=== PATIENT | female | born 1945 | race Caucasian/White ===

== ENCOUNTER 2025-04-17 10:10 | Emergency (ER) | payer MEDICARE, OTHER ==
[~2025-04-17] VITALS: Ht 177.8 cm; Wt 98.1 kg
--- NOTE | 2025-04-17 10:22 | ELECTROCARDIOGRAPH REPORT ---
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 Rigoberto Joe Measurements Intervals Margie Rate: 124 P: 0 AK: 0 QRS: 48 QRSD: 132 T: 53 QT: 345 QTc: 496 Interpretive Statements Atrial fibrillation Left bundle branch block Electronically Signed On 04-27-2025 8:16:[address] Rigoberto Joe Please click the below link to view image of tracing.
[2025-04-17 10:29] LABS: MEAN PLATELET VOLUME 10.3 FL (7.4-10.4); RED CELL DISTRIBUTION WIDTH 15.2 % (11.5-14.5)
[2025-04-17 10:52] LABS: CREATININE 0.66 MG/DL (0.40-0.90); PRO BRAIN NATRIURETIC PEPTIDE 1854 PG/ML (0-450); TOTAL CARBON DIOXIDE 29.3 MMOL/L (24-32); eCRCL 77 ML/MIN; eGFR 87 ML/MIN
--- NOTE | 2025-04-17 11:07 | RADIOLOGY REPORT ---
EXAM: DI CHEST,SINGLE VIEW HISTORY: CP COMPARISON: None TECHNIQUE: Portable upright AP view of the chest was performed. FINDINGS: No pneumothorax, consolidative infiltrates, or pulmonary edema. The heart is borderline enlarged. There is a left chest loop recorder. 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 IMPRESSION: No acute intrathoracic process.
--- NOTE | 2025-04-17 12:49 | Physician Documentation ---
History of Present Illness ~ Chief Complaint: Irregular Heartbeat Stated Complaint: IRREG HEART RATE Time Seen by MD: 10:48 Source: patient Mode of Arrival: Ambulatory Exam Limitations: no limitations HPI Chief Complaint: Palpitations Caveat: None Independent Historians: History of Present Illness: Patient is a 79-year-old woman with a history of labile hypertension who presents with palpitations that began last evening around 9:00 p.m.. It kept her from sleeping. No chest pain. Maybe some mild shortness a breath. Patient denies any cough or fever. Patient has had nausea since last night. She has had some associated dizziness/lightheadedness. No abdominal pain. Review of systems: All systems were reviewed and are negative except for what is indicated in the history of present illness. Past Medical History: HTN Past Surgical History: Noncontributory Social History: , no tobacco use, no alcohol use, no drug use Medications: Reviewed as documented Nursing Notes Allergies: Reviewed as documented in Nursing Notes Medication Reconciliation Allergies: Coded Allergies: verapamil (Verified Allergy, Unknown, seizure, 04/17/25) Review of Systems All Other Systems at this time: Reviewed and Negative ROS Patient denies any other acute symptoms other than above. All other systems are negative Physical Exam Vital Signs: Temperature: 96.9, Heart Rate: 132, Respiratory Rate: 18, BP: 188/100, Pulse Oximetry: 97, Weight: 98.100 Oxygen Flow Rate: 0 Pulse Oximetry Reflects: adequate oxygenation Physical Exam General Appearance: No distress HEENT: Normal OP, moist oral mucosa, PERRL, EOMI Neck: supple, normal ROM, trachea midline Pulmonary: No respiratory distress, CTA, BS equal Cardiac: Tachycardic, irregularly irregular, no murmur, rub or gallop, GI: nondistended, soft, nontender, normal bowel sounds, no guarding, no rebound Extremities: normal ROM, no swelling, non-tender Skin: intact, dry, warm, no rashes Neuro: AAOx3, speech is clear, no focal motor weakness Psych: normal affect, good eye contact, no apparent hallucination, normal speech Procedures Cardioversion Cardioversion : Medications: Diprivan (70 MG) Joules: 120 Resulting Rhythm: NSR Tolerated Procedure Well?: yes, no complications Procedure Note PATIENT TOLERATED THE PROCEDURE WELL. BLOOD PRESSURE IMPROVED. NO HYPOXIA OCCURRED. PATIENT IS NOW AWAKE AND MENTAL STATUS BACK TO BASELINE. PATIENT NEUROLOGICALLY INTACT. Progress Results/Orders Results/Orders Orders - PATTI MOTA MD Chest,Single View (04/17/25 10:15) Monitor (04/17/25 10:15) Saline Lock (04/17/25 10:15) Oxygen (04/17/25 10:15) Completed Orders - PATTI MOTA MD Chest,Single View (04/17/25 10:15) Cbc/Diff (04/17/25 10:15) BMP (04/17/25 10:15) PBNP (04/17/25 10:15) Electrocardiogram (04/17/25 10:15) Hs Troponin I W Calculations (04/17/25 10:15) Hs Troponin I W Calculations (04/17/25 12:15) Propofol Inj (Diprivan Inj) (04/17/25 13:00) Vital Signs 04/17/25 04/17/25 04/17/25 04/17/25 10:23 11:49 13:28 13:34 Temp 96.9 96.9 Pulse 120 132 94 100 Resp 18 18 11 12 B/P (MAP) 190/111 188/100 (129) 197/97 (130) 197/97 Pulse Ox 96 97 99 100 O2 Delivery Nasal Cannula O2 Flow Rate 0 0 2.0 04/17/25 04/17/25 04/17/25 04/17/25 13:35 13:37 13:38 13:45 Pulse 105 105 105 66 Resp 15 15 15 14 B/P (MAP) 184/112 184/112 184/112 Pulse Ox 99 99 99 98 O2 Delivery Nasal Cannula Nasal Cannula Nasal Cannula Nasal Cannula* O2 Flow Rate 2.0 2.0 2.0 2 FiO2 28 04/17/25 13:45 Pulse 66 Resp 24 Pulse Ox 98 O2 Delivery Nasal Cannula O2 Flow Rate 2.0 Laboratory Tests Test 04/17/25 10:20 04/17/25 12:05 White Blood Count 5.7 Red Blood Count 4.65 Hemoglobin 13.0 Hematocrit 39.3 Mean Corpuscular Volume 84.5 Mean Corpuscular Hemoglobin 28.0 Mean Corpuscular Hemoglobin Concent 33.1 Red Cell Distribution Width 15.2 H Platelet Count 145 Mean Platelet Volume 10.3 Neutrophils (%) (Auto) 46.9 Lymphocytes (%) (Auto) 37.0 Monocytes (%) (Auto) 8.0 Eosinophils (%) (Auto) 6.8 H Basophils (%) (Auto) 1.3 H Neutrophils # (Auto) 2.7 Lymphocytes # (Auto) 2.1 Monocytes # (Auto) 0.5 Eosinophils # (Auto) 0.4 Basophils # (Auto) 0.1 CBC Comment Sodium Level 141 Potassium Level 4.0 Chloride Level 105 Carbon Dioxide Level 29.3 Anion Gap 7 L Blood Urea Nitrogen 9 Creatinine 0.66 Estimated GFR/1.73 m2 87 BUN/Creatinine Ratio 13.6 Glucose Level 104 Calcium Level 9.0 Troponin I High Sensitivity 10 10 Pro-B-Type Natriuretic Peptide 1854 H Albumin 3.8 Chemistry Comments Troponin I High Sens Percent Delta 0 Troponin I Hi Sens Absolute Change 0 Medical Decision Making Additional information obtaine: old records (No prior visits or medical records to review) Findings Differential diagnosis includes but is not limited to: Acute coronary syndrome, pulmonary embolus, atrial flutter, atrial fibrillation, other cardiac dysrhythmia EKG independent interpretation: Repeat EKG independent interpretation: Performed at 1:44 p.m.. Normal sinus rhythm, heart rate 67, leftward axis, left bundle-branch block. Chest x-ray, single view, indication: Palpitations Independent interpretation: Lungs are clear, normal mediastinum, normal cardiac silhouette. No acute cardiopulmonary process Laboratory data independent interpretation: CBC: Unremarkable CMP: Unremarkable 1st troponin: 10 2nd troponin: 10 Pro BNP: 1854 Emergency department course/medical decision-making: Patient presents with dizziness and palpitations. Patient's EKGs consistent with new onset atrial fibrillation. Patient has had palpitations in the past but nothing like this has been persistent. Patient isn't having any chest pain. Troponins are negative. Do not suspect acute coronary syndrome or pulmonary embolus. Patient meets criteria for synchronized cardioversion. All the test results above and recommendation for synchronized cardioversion was discussed with the patient and her . Patient is followed by Dr. Claire as no history of coronary artery disease requiring intervention. VERBAL AND WRITTEN CONSENT OBTAINED TO PROCEED WITH PROCEDURAL SEDATION AND SYNCHRONIZED CARDIOVERSION. Patient tolerated the procedure well. Patient's mental status is back to baseline she is neurologically intact. Patient is stable for discharge. Differential Dx:Considerations: Include: other (The above) Differential Dx:Considerations: Include other (See above) Departure Time of Disposition: 14:02 Disposition: 01 HOME / SELF CARE / HOMELESS Impression: Primary Impression: Atrial fibrillation Qualified Codes: I48.91 - Unspecified atrial fibrillation Condition: Improved Discharge Instructions: Moderate Conscious Sedation, Adult, Care After, Atrial Fibrillation Additional Instructions: FOLLOW UP WITH DR. CHAO. CALL HIS OFFICE TODAY OR TOMORROW. RETURN TO THE ER IF YOUR SYMPTOMS RECUR. Referrals: GABRIELA CHAO MD Education Educated: Patient Educated regarding: diagnosis, treatment Signature Scribe Signature: No scribe Attestation: No scribe PATTI MOTA MD Apr 17, 2025 12:49
[2025-04-17] MEDS: propofol 10mg/ml 20ml vial IV ONE (13:00)
[2025-04-17 13:45] VITALS: PULSE 66; RESP 14; O2SAT 98
[2025-04-17 14:35] VITALS: BP 195/81; PULSE 66; RESP 12; TEMP 96.9; O2SAT 99
== END 2025-04-17 14:39 | disposition home or self-care (01) ==
LOC: ER 10:10
DX: I48.91 Unspecified atrial fibrillation (principal); I10 Essential (primary) hypertension; R06.02 Shortness of breath
CPT/HCPCS: 36415; 71045; 80048; 83880; 84484; 85025; 92960; 93005; 99285; A4620; J7030; 94760